=== PATIENT | male | born 1980 | race Asian ===

== ENCOUNTER 2020-12-05 08:00 | Inpatient (IN) | payer OTHER ==
[2021-01-23 13:57] VITALS: BMI 26.5
[2021-01-30] MEDS ORDERED: GENTAMICIN SO4 80 MG/2 ML VIAL ONE (07:07)
[2021-01-30] MEDS ORDERED: VANCOMYCIN 1,000 MG VIAL (RESTRICTED TO ID ONLY) ONE (07:07)
[2021-01-30] MEDS ORDERED: LIDOCAINE 1%/EPI 1:100000 (50 ML MULTI DOSE VIAL) ONE (07:07)
[2021-01-30] MEDS ORDERED: BUPIVACAINE LIPOSOME/PF (EXPAREL) 266 MG/20 ML VIAL ONE (07:07)
[2021-01-30] MEDS ORDERED: BUPIVACAINE HCL/PF 0.5% (5MG/ML) 10 ML VIAL ONE (07:08)
[2021-01-30] MEDS ORDERED: THROMBIN (BOVINE) 20,000 UNIT VIAL TP ONE (07:08)
[2021-01-30] MEDS ORDERED: HYDROmorphone HCl 2 MG/ML VIAL ONE ×2 (08:27)
[2021-01-30] MEDS ORDERED: PROPOFOL 20 ML ONE ×2 (08:27→10:54)
[2021-01-30] MEDS ORDERED: MIDAZOLAM HCL 2 MG/2 ML SINGLE DOSE VIAL ONE ×2 (08:28)
[2021-01-30] MEDS ORDERED: ROCURONIUM BROMIDE 50 MG/5 ML SYRINGE ONE ×2 (08:28→10:54)
[2021-01-30] MEDS ORDERED: MORPHINE 5 MG/10 ML AMP - FOR COMPOUNDING USE ONLY ONE (08:28)
[2021-01-30] MEDS ORDERED: SUCCINYLCHOLINE CHLORIDE 200 MG/10 ML SYRINGE ONE (08:35)
[2021-01-30] MEDS ORDERED: VANCOMYCIN 1 GM in NS (PRE-DOCKED) 1,000 MG/250 ML IVPB ONE (09:21)
[2021-01-30] MEDS ORDERED: ceFAZolin 2 GRAM PREMIX BAG IVPB ONE (09:21)
[2021-01-30] MEDS ORDERED: LIDOCAINE 1%/EPI 1:100000 (20 ML MULTI DOSE VIAL) IJ ONE (09:25)
[2021-01-30] MEDS ORDERED: TRANEXAMIC ACID 1000 MG/10 ML VIAL IVPB ONE (09:31)
[2021-01-30] MEDS ORDERED: THROMBIN (BOVINE) 5,000 UNIT VIAL TP ONE (09:31)
[2021-01-30] MEDS ORDERED: HYDROGEN PEROXIDE 473 ML PO ONE (09:32)
[2021-01-30] MEDS ORDERED: BACITRACIN 50,000 UNITS VIAL TP ONE (09:32)
[2021-01-30] MEDS ORDERED: GENTAMICIN SO4 80 MG/2 ML VIAL IVPB ONE (09:32)
[2021-01-30] MEDS ORDERED: BUPIVACAINE HCL/PF 0.5% (5MG/ML) 10 ML VIAL IJ ONE (11:44)
[2021-01-30] MEDS ORDERED: BUPIVACAINE LIPOSOME/PF (EXPAREL) 266 MG/20 ML VIAL NR ONE (11:44)
[2021-01-30] MEDS ORDERED: NEOSTIGMINE METHYLSULFATE 0.5 MG/1 ML - 10 ML MDV ONE (11:47)
[2021-01-30] MEDS ORDERED: oxyCODONE HCL 5 MG TABLET PO PRN (12:42)
[2021-01-30] MEDS ORDERED: ONDANSETRON 4 MG/2 ML VIAL IVPUSH PRN (12:42)
[2021-01-30] MEDS ORDERED: HYDROmorphone HCl 2 MG/ML VIAL IVPUSH PRN (12:53)
[2021-01-30] MEDS: HEPARIN NA (PORCINE) 5,000 UNITS/ML 1ML VIAL SQ SCH ×2 (13:40→21:28)
[2021-01-30] MEDS: LACTATED RINGERS SOLUTION 1,000 ML/1,000 ML INFUS.BAG IV SCH (14:30)
[2021-01-30] MEDS: DOCUSATE SODIUM 100 MG CAPSULE (FP) PO SCH ×3 (17:53→21:30)
[2021-01-30] MEDS ORDERED: CEFAZOLIN 1 GM/D5W 1 GM/50 ML BAG IVPB SCH (18:00)
[2021-01-30] MEDS ORDERED: CEFAZOLIN 1 GM in DEXTROSE 5%-WATER - 50 ML IVPB SCH (18:06)
[2021-01-30] MEDS ORDERED: DEXTROSE 5%-WATER - 50 ML IVPB ONE (18:08)
[2021-01-30] MEDS ORDERED: ceFAZolin SODIUM 1 GM VIAL ONE (18:08)
[2021-01-30] MEDS: CEFAZOLIN 1 GM in DEXTROSE 5%-WATER - 50 ML IVPB SCH (18:40)
[2021-01-30] MEDS: oxyCODONE HCL 5 MG TABLET PO PRN (22:52)
[2021-01-31] MEDS ORDERED: DEXTROSE 5%-WATER - 50 ML IVPB ONE ×2 (00:30→09:35)
[2021-01-31] MEDS ORDERED: ceFAZolin SODIUM 1 GM VIAL ONE ×2 (00:30→09:34)
[2021-01-31] MEDS: CEFAZOLIN 1 GM in DEXTROSE 5%-WATER - 50 ML IVPB SCH ×2 (02:02→09:44)
[2021-01-31] MEDS: diphenhydrAMINE HCL 25 MG CAPSULE (FP) PO PRN ×2 (02:11→09:55)
[2021-01-31] MEDS: morphine SULFATE 4 MG/ML VIAL IVPUSH PRN ×3 (02:11→14:39)
[2021-01-31] MEDS: LACTATED RINGERS SOLUTION 1,000 ML/1,000 ML INFUS.BAG IV SCH ×2 (05:00→14:38)
[2021-01-31] MEDS: HEPARIN NA (PORCINE) 5,000 UNITS/ML 1ML VIAL SQ SCH ×3 (05:45→21:37)
[2021-01-31] MEDS: DOCUSATE SODIUM 100 MG CAPSULE (FP) PO SCH ×3 (06:07→21:37)
[2021-01-31] MEDS: FERROUS SO4 325 MG TABLET (FP) PO SCH (09:44)
[2021-01-31] MEDS: FOLIC ACID 1 MG TABLET (FP) PO SCH (09:44)
[2021-01-31] MEDS: BACLOFEN 10 MG TABLET (FP) PO SCH (14:40)
[2021-01-31] MEDS: GABAPENTIN 300 MG CAPSULE PO SCH (14:40)
[2021-01-31] MEDS: oxyCODONE HCL 5 MG TABLET PO PRN ×2 (18:38→22:48)
[2021-02-01] MEDS: HEPARIN NA (PORCINE) 5,000 UNITS/ML 1ML VIAL SQ SCH ×2 (05:30→12:25)
[2021-02-01] MEDS: DOCUSATE SODIUM 100 MG CAPSULE (FP) PO SCH ×2 (05:56→13:42)
[2021-02-01] MEDS: oxyCODONE HCL 5 MG TABLET PO PRN (05:59)
[2021-02-01 08:24] LABS: HEMATOCRIT 37.9 % (35.4-49); HEMOGLOBIN 12.9 GM/dL (11.7-16.9); MCH 29.8 pg (25.7-33.7); MEAN CELL VOLUME 87.6 fl (80-96); MEAN PLT VOLUME 9.1 fl (7.5-11.1); PLATELET COUNT 217 10^3/uL (134-434); RBC 4.32 M/mm3 (4.00-5.60); RDW 13.7 % (11.9-15.9); WHITE BLOOD COUNT 13.7 K/mm3 (4.0-10.0)
[2021-02-01 08:53] LABS: BLOOD UREA NITROGEN 13.4 mg/dL (7-18); CALCIUM 8.1 mg/dL (8.5-10.1); MAGNESIUM 2.2 mg/dL (1.8-2.4)
[2021-02-01 08:58] LABS: BILIRUBIN,TOTAL 0.7 mg/dL (0.2-1); TOT PROT 6.5 g/dl (6.4-8.2)
[2021-02-01 09:02] LABS: ALBUMIN 3.3 g/dl (3.4-5.0)
[2021-02-01] MEDS: FERROUS SO4 325 MG TABLET (FP) PO SCH (09:56)
[2021-02-01] MEDS: BACLOFEN 10 MG TABLET (FP) PO SCH (09:56)
[2021-02-01] MEDS: FOLIC ACID 1 MG TABLET (FP) PO SCH (09:58)
[2021-02-01] MEDS: GABAPENTIN 300 MG CAPSULE PO SCH (09:59)
[2021-02-01] MEDS ORDERED: POTASSIUM CHLORIDE TABS 20 MEQ TABLET.ER (FP) PO ONE (11:30)
[2021-02-01 14:42] VITALS: BP 133/74; PULSE 92; TEMP 98.4
== END 2021-02-01 16:45 | disposition home or self-care (01) | DRG 304 ==
LOC: J2C 01-30 04:13 → J4W 01-30 15:58
PROVIDERS: ADMIT Neurological Surgery; ATTEND Internal Medicine
PROC: 0SG30K1 Fusion of Lumbosacral Joint with Nonautologous Tissue Substitute, Posterior Approach, Posterior Column, Open Approach (ICD-10-PCS; 2021-01-30)
PROC: 01NB0ZZ Release Lumbar Nerve, Open Approach (ICD-10-PCS; 2021-01-30)
PROC: 0SB40ZZ Excision of Lumbosacral Disc, Open Approach (ICD-10-PCS; 2021-01-30)
PROC: B01BZZZ Fluoroscopy of Spinal Cord (ICD-10-PCS; 2021-01-30)
PROC: 0SG30AJ Fusion of Lumbosacral Joint with Interbody Fusion Device, Posterior Approach, Anterior Column, Open Approach (ICD-10-PCS; principal; 2021-01-30 08:00)
DX: M51.27 Other intervertebral disc displacement, lumbosacral region (principal); M48.07 Spinal stenosis, lumbosacral region
CPT/HCPCS: 36415; 72131-TC; 76000-TC-FY; 80053; 83735; 84100; 85027; 86850; 86900; 86901; 86922; 94760; 97116-GP; 97161-GP; J0475; J1644